=== PATIENT | male | born 2000 | race Caucasian/White ===

== ENCOUNTER 2024-05-16 04:18 | Emergency (ER) | payer OTHER ==
[2024-05-16 05:28] LABS: Influenza A by NAA Not Detected (NotDetected); Influenza B by NAA Not Detected (NotDetected); SARS-CoV-2 NAA Rapid Test DETECTED (NotDetected)
== END 2024-05-16 05:48 | disposition home or self-care (01) ==
LOC: CSHERS 04:18
DX: U07.1 COVID-19 (principal)
CPT/HCPCS: 87081; 87430; 99283